=== PATIENT | female | born 1980 | race Caucasian/White ===

== ENCOUNTER 2019-07-12 23:18 | Inpatient (IN) ==
[2019-07-12 23:49] LABS: BASO# 0.06 X1000 (0.0-0.2); BASO% 1.2 % (0.0-0.8); EOS# 0.06 X1000 (0.0-0.7); EOS% 1.2 % (0.0-10.0); HEMATOCRIT 38.8 % (37.0-47.0); HEMOGLOBIN 13.6 g/dL (12.0-16.0); LYMPH# 1.18 X1000 (1.2-3.4); LYMPH% 23.1 % (20.5-51.1); MCH 30.8 PG (27-31); MCHC 35.1 g/dL (33-37); MCV 87.8 FL (81-99); MONO# 0.62 X1000 (0.11-0.59); MONO% 12.1 % (1.7-9.3); MPV 11.5 FL (7.4-10.4); NEUT# 3.19 X1000 (1.4-6.5); NEUT% 62.4 % (42.2-75.2); PLT 153 X1000 (130-400); RBC 4.42 XMIL (4.2-5.4); RDW 16.2 % (11.5-14.5); WBC 5.11 X1000 (4.8-10.8)
[2019-07-13 01:07] LABS: URINE SOURCE CLEAN CATCH
[2019-07-13 01:13] LABS: AGAP 12; ALB/GLOB RATIO 1.2; ALBUMIN 3.4 g/dL (3.5-5.0); ALKALINE PHOSPHATASE 345 U/L (32-104); AMYLASE 39 U/L (20-200); BUN 5 mg/dL (8-22); CALCIUM 8.6 mg/dL (8.8-10.2); CHLORIDE 101 mmol/L (98-107); COSMO 273; CREATININE 0.7 mg/dL (0.5-0.9); ESTIMATED GFR > 60; GLUCOSE 130 mg/dL (70-104); GOT 1074 U/L (10-30); GPT 1166 U/L (10-36); LIPASE 35 U/L (13-60); POTASSIUM 3.5 mmol/L (3.5-5.1); SODIUM 137 mmol/L (136-145); TCO2 24 mmol/L (25-35); TOTAL BILIRUBIN 14.91 mg/dL (0.20-1.00); TOTAL PROTEIN 6.2 g/dL (6.3-8.3)
[2019-07-13 01:22] LABS: UR AMPHETAMINES QUAL PRESUMPTIVE POSITIVE (NONE DETECT); UR BARBITUATES QUAL NONE DETECTED (NONE DETECT); UR BENZODIAZEPIN QUAL NONE DETECTED (NONE DETECT); UR CANNABINOIDS QUAL PRESUMPTIVE POSITIVE (NONE DETECT); UR COCAINE QUAL NONE DETECTED (NONE DETECT); UR METHADONE QUAL NONE DETECTED (NONE DETECT); UR OPIATES QUAL NONE DETECTED (NONE DETECT); UR OXYCODONE QUAL NONE DETECTED (NONE DETECT); UR PCP QUAL NONE DETECTED (NONE DETECT)
[2019-07-13 01:50] LABS: BLOOD URINE NEGATIVE (NEGATIVE); COLOR YELLOW; GLUCOSE URINE TRACE mg/dL (NEGATIVE); KETONE URINE NEGATIVE (NEGATIVE); LEUKOCYTES URINE TRACE (NEGATIVE); NITRITE URINE NEGATIVE (NEGATIVE); PROTEIN URINE 50 mg/dL (NEGATIVE); SP GRAVITY URINE 1.026; TURBIDITY URINE HAZY (CLEAR); UROBILINOGEN URINE 4 mg/dL (NORMAL)
[2019-07-13 02:12] LABS: UR EPITHELIAL CELLS <10 /HPF (<10); URINE BACTERIA NEGATIVE /HPF; URINE WBC <10 /HPF (<10)
[2019-07-13 02:29] LABS: BILIRUBIN URINE LARGE (NEGATIVE)
[2019-07-13 02:31] LABS: URINE CASTS NONE SEEN; URINE CRYSTALS NONE SEEN; URINE SMALL ROUND CELLS NONE SEEN; URINE YEAST PRESENT
--- NOTE | 2019-07-13 03:09 | PROVIDER DOCUMENTATION ---
This chart was entered by Thao Harris Scribe, acting as scribe for Tiffanie Angulo MD. HPI-Abdominal Pain/GI Problem - General Chief Complaint: Abdominal Pain Stated Complaint: ABD PAIN/FEVER/N/V/ Time Seen by Provider: 07/13/19 00:30 Source: patient Allergies/Adverse Reactions: Patient Allergies Allergy/AdvReac Type Severity Reaction Status Date / Time No Known Allergies Allergy Verified 07/13/19 02:13 Home Medications: Home Medication List Medication Instructions Recorded Confirmed Last Taken Type NK [No Home Medications] 07/13/19 07/13/19 Unknown History - History of Present Illness-ABD Nature of Presenting Problems: Pt is a 39 yr old female presenting with 2-3 days complaint of RUQ pain, nausea/vomiting and intermittent diarrhea/constipation, no fever/chills. Pt does admit to worsening yellowing of the skin/eyes. Last BM was yesterday, admits rashel-like stool. Abdominal Pain Onset Location: reports: RUQ Pain Radiation: reports: no radiation Quality of Pain: reports: aching Severity in ED: reports: moderate Onset/Duration: reports: 2 days ago, 3 days ago Timing: reports: still present Activities at Onset: reports: light activity Exposure to sick contacts?: No Modifying Factors: improves with: nothing Associated Symptoms: reports: constipation, diarrhea, nausea, vomiting. denies: fever/chills, genitourinary problems Last BM: 24 hours ago (rashel like bowel movement) Dark Stools Present?: reports: none noticed Rectal Bleeding: reports: none Rectal Pain: reports: none Bruising or Bleeding Gums?: No Similar Symptoms Previously?: No Recently seen or treated by another doctor?: No Review of Systems - Adult - REVIEW OF SYSTEMS - ADULT Constitutional: denies: chills, fever Eyes: reports: no symptoms reported Ears, Nose, Mouth & Throat: denies: ear pain, sinus problem, throat pain Cardiovascular: denies: chest pain, palpitations, syncope Respiratory: denies: cough, shortness of breath Gastrointestinal: reports: abdominal pain, constipation, diarrhea, nausea, vomiting Genitourinary: denies: dysuria, frequency, flank pain Musculoskeletal: denies: back pain, joint pain, neck pain Integumentary: reports: no symptoms reported Neurological: denies: dizziness/vertigo, headache/migraines Psychiatric: reports: no symptoms reported Endocrine: reports: change in skin pigment Hematologic/Lymphatic: reports: no symptoms reported Allergic/Immunologic: reports: no symptoms reported All Other Systems: Reviewed and Negative Past History - Adult - PAST MEDICAL HISTORY-ADULT Review of Records: reports: Old Records Reviewed, Nursing Assessment Review, Medications Reviewed, Social history reviewed & non-contributory. Major Childhood Illnesses: reports: denies history Cardiovascular: reports: denies history Respiratory: reports: denies history Gastrointestinal: reports: denies history Obstetrical/Gynecological: reports: denies history Genitourinary: reports: denies history Musculoskeletal: reports: denies history Neurological: reports: denies history Endocrine/Immune: reports: denies history Other Conditions: reports: denies history - IMMUNIZATION STATUS Childhood Immunizations: See Nurse Assessment Flu Vaccine: See Nurse Assessment - FAMILY HISTORY Family History: reviewed, not pertinent - SOCIAL HISTORY Smoking: cigarettes Provider spent 3-5 mins advising pt. on dangers of tobacco.: Discussed manners to quit use, and f/u contacts for add'l counseling. Substance Use: amphetamines (meth) Living Situation: family Physical Exam-General - PHYSICAL EXAM-ADULT Initial Vital Signs Reviewed: Yes - CONSTITUTIONAL General Appearance: alert, no apparent distress - EYES Eyes: PERRL/EOMI, scleral icterus - HEAD, EARS, NOSE, MOUTH & THROAT HENMT: normocephalic/atraumatic, moist mucous membranes, normal ENT inspection - NECK Neck: non-tender, full range of motion, supple, normal inspection - RESPIRATORY Respiratory: chest non-tender, lungs clear, normal breath sounds, no respiratory distress, no accessory muscle use - CARDIOVASCULAR Cardiovascular: normal peripheral pulses, no edema, tachycardia - GASTROINTESTINAL (ABDOMEN) Abdominal Exam: normal bowel sounds, soft, tenderness (RUQ). negative: hernia, mass, hepatomegaly - LYMPHATIC Lymphatic: no adenopathy - MUSCULOSKELETAL Back Exam: normal inspection, no CVA tenderness, no vertebral tenderness Extremity: normal range of motion, non-tender, normal gait, normal inspection - SKIN Integumentary: normal turgor, warm/dry, jaundice - NEUROLOGIC Neurologic: grossly normal, no motor/sensory deficits - PSYCHIATRIC Psych/Mental Status: normal mood/affect, normal thought content, normal thought process, oriented x 3 Progress - PLAN OF CARE/RESULTS Progress/Plan/Lab Results: Vital Signs - 8 hr 07/12/19 23:27 Temperature 98.3 F Pulse Rate 115 H Respiratory Rate 16 Blood Pressure 133/83 O2 Sat by Pulse Oximetry 98 Laboratory Results - last 24 hr 07/12/19 23:38 WBC 5.11 RBC 4.42 Hgb 13.6 Hct 38.8 MCV 87.8 MCH 30.8 MCHC 35.1 RDW Std Deviation 16.2 H Plt Count 153 MPV 11.5 H Immature Gran % (Auto) 0.0 Neut % (Auto) 62.4 Lymph % (Auto) 23.1 [place] % (Auto) 12.1 H Eos % (Auto) 1.2 Baso % (Auto) 1.2 H Immature Gran # (Auto) 0.00 Neut # (Auto) 3.19 Lymph # (Auto) 1.18 L [place] # (Auto) 0.62 H Eos # (Auto) 0.06 Baso # (Auto) 0.06 Orders Category Date Time Status ED: Urine Bedside ORDERED Care 07/12/19 23:34 Active NPO Diet 07/12/19 23:[address] ABDOMEN/PELVIS W/O CONTRAST [CT] Stat Exams 07/13/19 00:30 Ordered AMYLASE [CHEM] Stat Lab 07/12/19 23:38 Received CBC WITH DIFF [HEME] Stat Lab 07/12/19 23:38 Completed COMPREHENSIVE METABOLIC PANEL [CHEM] Stat Lab 07/12/19 23:38 Received LIPASE [CHEM] Stat Lab 07/12/19 23:38 Received URINALYSIS [URINALYSIS] Stat Lab 07/12/19 23:34 Uncollected Abd Pain/OB <20 weeks Stat Oth 07/12/19 23:33 Ordered Result Diagrams: 07/12/19 23:38 07/12/19 23:38 - REASSESSMENT Reassessment #1 Time Reassessed: 03:06 (Pt with acute LFT elevation; signs concerning for cholecystitis) - CT/MRI 1 CT Study: Abdomen (Real Rad interpretation - "cholelithiasis and findings consistent with acute cholecystitis. Possible ascending and transverse colitis. Gallbladder wall thickening with pericholecystic fluid and inflammation.") Impression: See EMR Report - CONSULTS/PCP/HOSPITALIST Notification #1 *Consult/PCP/Hospitalist*: Dr. Mckeon (Surgery) Time Discussed: 02:55 Consult Disposition: other (admit to hospitalist service) Time Discussed: 02:57 Reason/Comments: Dr. Haney Consult Disposition: Admit Departure - Departure Date of Disposition Decision: 07/13/19 Time of Disposition Decision: 03:03 DIAGNOSIS: Cholecystitis Disposition: ADMITTED INPATIENT 09 Certified Medical Emergency: Emergent Condition: Fair Referrals and Follow-Ups: None,PCP [Primary Care Provider] - - Critical Care Note This patient required my direct & personal management of CC.: No Attestation - Physician/ GRACE Attestation Patient care was provided by Advanced Practice Provider:: No The physician spent face to face time with patient:: Yes Advanced Practice Provider documentation review:: Supervising physician onsite and consulted in the evaluation and care of this patient. The physician did have a face to face encounter with the patient. This chart was documented by the indicated scribe, (Thao Harris, [employer]) and accurately reflects the services I performed and decisions made by me, Tiffanie Wooten MD, as attested by the provider's signature.
[2019-07-13] MEDS ORDERED: DILAUDID IV PRN ×2 (04:28→08:45)
[2019-07-13] MEDS ORDERED: ZOFRAN IV PRN (04:28)
[2019-07-13] MEDS: PROTONIX IV SCH (04:30)
[2019-07-13] MEDS: NS 1,000 ML IV SCH ×3 (04:30→17:59)
[2019-07-13] MEDS: SODIUM CHLORIDE 0.9% INJ SCH (05:01)
--- NOTE | 2019-07-13 06:49 | Diag Imaging Result Doc PS360 ---
CT ABDOMEN/PELVIS W/O CONTRAST - 07/13/2019 INDICATION: abd pain, jaundice COMPARISON: None FINDINGS: The lung bases are clear and the heart size is normal. There are several calcified stones in the gallbladder. There is some gallbladder wall thickening. No radiodense renal stones. No hydronephrosis or hydroureter. There is some questionable wall thickening of the transverse colon and descending colon which may reflect colitis. No bowel obstruction or free air. Normal appendix. Urinary bladder, uterus, and rectum are normal. Bones are intact and well mineralized. IMPRESSION: 1. Several gallstones in the gallbladder. Findings compatible with cholecystitis. 2. Probable colitis of the transverse and descending colon. This exam was performed using automated exposure control, adjustment of mA or kV according to patient size, and/or use of iterative reconstruction technique Electronically signed by Sandip Giraldo 07/13/2019 6:46 AM
[2019-07-13] MEDS ORDERED: ZOSYN 3.375 GM in NS 50 ML IV SCH (08:00)
--- NOTE | 2019-07-13 09:34 | HISTORY AND PHYSICAL ---
CHIEF COMPLAINT: Right upper quadrant abdominal pains. HISTORY OF PRESENT ILLNESS: Ms Hardy Pastrana is a 39-year-old female who does not have any significant past medical history, who presents to the hospital because of right upper quadrant abdominal pains which she has had for about 2 to 3 days. She has had associated nausea with vomiting. No diarrhea or constipation. The patient has had associated yellowness of the eyes. When she presented to the hospital, she was noted to have markedly elevated liver function tests, AST of 1074 and ALT of 1166. She also had a CT scan of the abdomen and pelvis which showed evidence of several gallstones in the gallbladder. Findings compatible with cholecystitis. Also probable colitis involving the transverse, as well as the descending colon. PAST MEDICAL HISTORY: Unremarkable. SOCIAL HISTORY: She smokes cigarettes. No alcohol use. She does use drugs. FAMILY HISTORY: Positive for gallbladder disease. ALLERGIES: No known drug allergies. PAST SURGICAL HISTORY: She has had tubal ligation in the past. MEDICATIONS: None. REVIEW OF SYSTEMS: Constitutional: No fever. Central Nervous System: She has headaches. ENT: No sinus problems. Eyes: She has yellowness of the eyes. Cardiovascular: No chest pain. Gastrointestinal: She does have nausea and vomiting. Genitourinary: No dysuria. Psychiatric: She has anxiety with depression. Dermatology: No skin lesions. Hematology: No bleeding problems. Endocrinology: No diabetes or thyroid disease. PHYSICAL EXAMINATION: VITAL SIGNS: Temperature is 98.3 degrees, pulse 115, respirations 16, blood pressure is 133/83, oxygen saturation 98%. HEENT: Atraumatic, normocephalic. She is icteric. No oral lesions noted. NECK: No lymphadenopathy or thyromegaly. CARDIOVASCULAR: S1, S2. RESPIRATORY: Has evidence of good entry bilaterally. ABDOMEN: Soft, nontender. No masses felt. EXTREMITIES: No evidence of edema. CENTRAL NERVOUS SYSTEM: No obvious focal deficits noted. LABORATORY DATA: WBC is 5.1, hematocrit is 38.2 with a platelet count of 153,000. Sodium is 137, potassium 3.5, chloride is 101, bicarbonate 24, BUN is 5, creatinine 0.7. AST 1074, ALT 1166, alkaline phosphatase 345. UA shows large amount of bilirubin. Urine drug screen positive for amphetamine, as well as cannabinoids. CT scan of the abdomen and pelvis shows evidence of several stones in the gallbladder. Also, probable colitis involving the transverse, as well as the descending colon. ASSESSMENT AND PLAN: 1. Acute cholecystitis with cholelithiasis. Place patient nothing by mouth, along with intravenous fluids, antiemetics and analgesic agents with antibiotics. Consult with Surgery for possible laparoscopic cholecystectomy. 2. Transaminitis, probably related to stones in the bile duct system. However, I will also get a hepatitis panel, as well as abdominal ultrasound. 3. Colitis involving the transverse as well as the descending colon. We will place the patient on antibiotics. The patient will need lower gastrointestinal endoscopy in the next 4 to 6 weeks. 4. Substance abuse. Aware. The patient needs to abstain from drug use. 5. Deep vein thrombosis prophylaxis. Sequential compression devices. 6. Gastrointestinal prophylaxis. Proton pump inhibitor. cc: Jeff Haney MD
[2019-07-13] MEDS: ROCEPHIN 1 GM in NS 50 ML IV SCH (09:58)
[2019-07-13 10:59] LABS: INR 1.09; PROTIME 14.3 Seconds (11.0-16.0)
[2019-07-13 11:00] LABS: PTT 40.5 Seconds (22.3-41.8)
[2019-07-13] MEDS: FLAGYL 500 MG/NS 500 MG/100 ML IVPB IV SCH ×3 (11:08→21:14)
[2019-07-13 11:38] LABS: HEMOGLOBIN A1C 5.3 % (4.8-6.0)
--- NOTE | 2019-07-13 11:46 | GENERAL SURGERY CONSULTATION ---
DATE: 07/13/2019 REQUESTING PHYSICIAN: Dr. Haney. REASON FOR CONSULTATION: Right upper quadrant pain and elevated liver function tests. HISTORY OF PRESENT ILLNESS: A 39-year-old female without really significant past medical history besides IV drug abuse and methamphetamine use, presented to the hospital with right upper quadrant pain which she has had for 2 to 3 days. She reports her last time to use methamphetamine was 2 to 3 days ago, and she has noticed that she has been jaundiced for 2 to 3 days. She was seen in emergency department, had a liver function tests that were over 1000 for AST and ALT. Bilirubin is over 14. A CT scan showed potential for cholecystitis and also probable colitis in the transverse and descending colon. I have been asked to weigh an opinion. Patient is reporting some right upper quadrant pain. She denies any recent IV drug abuse. PAST MEDICAL HISTORY: Nothing. PAST SURGICAL HISTORY: Tubal ligation. SOCIAL HISTORY: Smokes cigarettes. Does report methamphetamine use. FAMILY HISTORY: Positive for gallbladder disease. ALLERGIES: None reported. HOME MEDICATIONS: Reviewed. REVIEW OF SYSTEMS: A full 14 systems reviewed and are negative, except as specified in HPI. PHYSICAL EXAMINATION: Vital Signs: Patient is currently afebrile. Her vital signs are stable. General exam: No acute distress, jaundiced female, who looks stated age. HEENT: Normocephalic, atraumatic. Pupils equal, round, reactive to light. No scleral icterus noted. Mucous membranes moist. Oropharynx benign. Neck: Supple. Trachea midline. Cardiovascular: Regular rate and rhythm. Lungs: Grossly clear. Abdomen: Soft, nondistended. Some tenderness to palpation right upper quadrant, but no peritoneal signs. Extremities: Moves all extremities. Skin: Positive for jaundice. Vascular: All extremities perfused. Neurologic: Grossly intact. LABORATORY: White blood cell count is normal, hematocrit is normal, platelet count is normal. Bilirubin is 14.9, AST is 1074, ALT is 1166, alkaline phosphatase 345. Amylase, lipase normal. RADIOLOGY: CT scan independently reviewed and radiology report reviewed. Toxicology shows amphetamines positive and marijuana positive. CT scan independently reviewed and radiology report reviewed. ASSESSMENT AND PLAN: A 39-year-old female with right upper quadrant pain. 1. Right upper quadrant pain. At this time, her elevated bilirubin, AST, ALT, alkaline phosphatase seem more consistent with a hepatic injury pattern than cholestatic pattern. Bilirubin being 14 without biliary duct dilatation makes me think she might have some degree of hepatitis, which the panel is currently pending. I would recommend potentially getting Gastroenterology involved. We will need to get all the stuff back before even considering surgical intervention on the gallbladder, because again it could be just confounding variable at this moment. We will continue to follow. I appreciate the consult. cc: Juventino Gomez MD
--- NOTE | 2019-07-13 11:49 | PROGRESS NOTE ---
DATE: 07/13/2019 INTERVAL HISTORY: No acute events overnight. Ms. Pastrana was admitted for nausea, vomiting, abdominal pain, and jaundice. Workup is in progress. Surgery team has been consulted. SUBJECTIVE: Ms Pastrana is feeling better and abdominal pain has decreased. OBJECTIVE: Vital Signs: Temperature 98.5 degrees, pulse 72, respiratory rate 17, blood pressure 135/82, saturating 100% on room air. General: On physical exam, not in acute distress. She has generalized icterus and scleral icterus. Lungs: Air entry bilaterally equal. No wheeze, rhonchi, crackles. Cardiac: S1 and S2 normal. No murmur, rub, or gallop. Abdomen: Soft. Right upper quadrant tenderness with positive Hutson's sign. Active bowel sounds. Extremities: No lower extremity edema. She is alert and oriented x3. LABS: No new CBC or CMP. Urinalysis had large bilirubin. Urine toxicology positive for amphetamine and cannabis. Blood cultures are in lab. ASSESSMENT AND PLAN: 1. Acute cholecystitis with cholelithiasis. Continue intravenous fluids, intravenous nonsteroidal anti-inflammatory drugs, and intravenous hydromorphone as needed. I will keep her intravenous pantoprazole. Appreciate surgical team's recommendation. 2. Transaminitis with cholestatic pattern and elevated direct bilirubin. Follow up hepatitis panel, workup for autoimmune hepatitis, primary biliary cirrhosis and biliary cholangitis. CT scan of the abdomen and pelvis did not detect any definitive stone in the bile duct. Use of recreational substances is also a possibility. 3. Nonspecific colitis. 4. Amphetamine and cannabis use. The patient was counseled about stopping these substances including amphetamines and tobacco, as she has 4-cnha-fcc-day smoking history. 5. Continue enoxaparin for deep vein thrombosis prophylaxis. 6. Intravenous antibiotics. Further course pending further blood work including hepatitis panel. Plan of care discussed with the patient. Her questions have been answered. cc: Anival Delaney MD MTDD
[2019-07-13] MEDS: TORADOL IV PRN ×2 (12:01→18:19)
--- NOTE | 2019-07-13 14:34 | Diag Imaging Result Doc PS360 ---
EXAM: US ABDOMEN-COMPLETE 07/13/2019 HISTORY: abnormal lfts TECHNIQUE: Abdominal ultrasound COMMENT: The pancreas is normal in appearance. The aorta and inferior vena cava are within normal limits. The liver is unremarkable. There are numerous stones in the gallbladder and the gallbladder wall appears thickened although the gallbladder is not distended. There is no evidence of para cholecystic fluid or a sonographic Hutson sign. There is no evidence of biliary dilatation the common bile duct measuring less than 4 mm. The kidneys are without evidence of hydronephrosis or mass. The spleen is slightly enlarged measuring over 13.5 cm. There is antegrade flow in the portal vein. IMPRESSION: Cholelithiasis. Borderline splenomegaly. Electronically signed by Jared Rodriguez 07/13/2019 2:32 PM
[2019-07-14] MEDS: FLAGYL 500 MG/NS 500 MG/100 ML IVPB IV SCH ×4 (03:58→22:51)
[2019-07-14] MEDS: SODIUM CHLORIDE 0.9% INJ SCH (03:58)
[2019-07-14] MEDS: PROTONIX IV SCH (03:58)
[2019-07-14] MEDS: TORADOL IV PRN (04:11)
--- NOTE | 2019-07-14 06:24 | GENERAL SURGERY PROGRESS NOTE ---
DATE: 07/14/2019 SUBJECTIVE: Patient seems to be feeling a little bit okay. She is still jaundiced. OBJECTIVE: Vital Signs: Patient is currently afebrile. Her vital signs are stable. General: No acute distress. HEENT: Normocephalic, atraumatic. Pupils equal, round, and reactive to light. Positive scleral icterus noted. Mucous membranes moist. Oropharynx benign. Neck: Supple. Trachea midline. Cardiovascular: Regular rate and rhythm. Lungs: Grossly clear. Abdomen: Soft. Less tender in the right upper quadrant epigastric than yesterday. Extremities: Moves all extremities. Neurologic: Grossly intact. Skin: No signs of jaundice. Vascular: All extremities perfused. LABORATORY: None this morning as of yet. ASSESSMENT AND PLAN: A 39-year-old female with jaundice and right upper quadrant pain. Jaundice with right upper quadrant pain. At this time, I would still like to see the rest of her labs and hepatitis panel. Still looks like a liver injury pattern more so than a cholestatic pattern, but we will continue to monitor. cc: Juventino Gomez MD
[2019-07-14 08:30] LABS: AGAP 11; ALB/GLOB RATIO 1.2; ALBUMIN 2.9 g/dL (3.5-5.0); ALKALINE PHOSPHATASE 290 U/L (32-104); BUN 4 mg/dL (8-22); CALCIUM 8.2 mg/dL (8.8-10.2); CHLORIDE 104 mmol/L (98-107); COSMO 272; CREATININE 0.6 mg/dL (0.5-0.9); ESTIMATED GFR > 60; GLUCOSE 91 mg/dL (70-104); GOT 862 U/L (10-30); GPT 893 U/L (10-36); POTASSIUM 3.2 mmol/L (3.5-5.1); SODIUM 138 mmol/L (136-145); TCO2 23 mmol/L (25-35); TOTAL BILIRUBIN 13.51 mg/dL (0.20-1.00); TOTAL PROTEIN 5.3 g/dL (6.3-8.3)
[2019-07-14] MEDS: ROCEPHIN 1 GM in NS 50 ML IV SCH (09:36)
[2019-07-14] MEDS: NS 1,000 ML IV SCH ×2 (10:29→14:55)
[2019-07-14] MEDS: KLOR-CON PO SCH ×2 (14:21→18:36)
--- NOTE | 2019-07-14 16:33 | PROGRESS NOTE ---
DATE: 07/14/2019 INTERVAL HISTORY: No acute events overnight. Ms. Pastrana denies any chest pain, shortness of breath. She is still nauseous. Denies any more vomiting. Her abdominal pain is better. I was initially informed that the patient and her family and her significant other at bedside wanted the patient to go out of the hospital and probably be admitted to somewhere in [place] closer to her mother. I discussed with Ms. Pastrana about differential diagnosis of abnormal liver function tests, possible course of natural history. I also discussed with her that it may take several days for her liver function tests to become normal. I discussed about cholecystitis, hepatitis panel pending, recreational substance use, which could potentially contribute to it. She understood it. VITAL SIGNS: Temperature 98.3 degrees, pulse 85, respiratory rate 18, blood pressure 145/95, saturating 100% on room air. PHYSICAL EXAMINATION: HEENT: Ms. Pastrana does have icterus both of the skin and sclerae. Oral cavity is moist. Lungs: Air entry bilaterally equal. No wheeze or crackles. Heart: S1, S2, normal. No murmur or gallop. Abdomen: Soft. Mild tenderness in right upper quadrant, which is significantly decreased from presentation. Otherwise abdomen is nontender. Active bowel sounds. Extremities: No lower extremity edema. Neurologic: She is alert and oriented x3. LABS: Suggestive of a potassium of 3.2 which is currently being repleted. She does have decreased in total bilirubin. AST and ALT are improving. Her INR was normal. Albumin is 2.9. MICROBIOLOGY: Blood cultures are in lab. IMAGING: Abdominal ultrasound had suggested cholelithiasis and borderline splenomegaly. ASSESSMENT AND PLAN: 1. Acute cholecystitis with cholelithiasis. Continue intravenous fluids, intravenous NSAID, intravenous hydromorphone as needed. Continue intravenous ceftriaxone and metronidazole. Blood culture data has been unremarkable so far. Continue intravenous pantoprazole as well. Surgical team on board. 2. Acute hepatitis with hyperbilirubinemia and transaminitis. Antinuclear antibody and antimitochondrial antibody have been negative. Follow up hepatitis panel and antismooth muscle antibodies. Differential could also include use of recreational substances. I counseled about cessation of these substances. She understood it. 3. Amphetamine and cannabis use. She was counseled about not using these substances again. 4. Active tobacco use. She has 1 pack per day smoking history. I counseled her about smoking cessation. 5. Others. Continue enoxaparin for DVT prophylaxis. DISPOSITION: I will monitor patient inside the hospital. As per her request, I am in the process of calling [facility] in [facility]. cc: Anival Delaney MD MTDChelsea
--- NOTE | 2019-07-14 20:04 | PROGRESS NOTE ---
DATE: 07/14/2019 ADDENDUM TO PREVIOUSLY DICTATED PROGRESS: As per patient's request, I reached out to [facility] in [facility], to request transfer of this patient, and Dr. Barraza has accepted the patient. I explained to her about the patient's acute hepatitis, pending hepatitis panel. I explained to her about acute cholecystitis and the need for surgery evaluation, and a detailed sign-out was provided to the patient. I was later informed that though Dr. Barraza had accepted the patient, they did not have any telemetry beds, so they are going to reach out to us when the telemetry bed will become available. Her acetaminophen level was undetectable. cc: Anival Delaney MD
[2019-07-15] MEDS: NS 1,000 ML IV SCH (02:36)
[2019-07-15] MEDS: FLAGYL 500 MG/NS 500 MG/100 ML IVPB IV SCH ×2 (03:52→08:58)
[2019-07-15] MEDS: SODIUM CHLORIDE 0.9% INJ SCH (03:52)
[2019-07-15] MEDS: PROTONIX IV SCH (03:52)
[2019-07-15 07:12] LABS: AGAP 10; ALB/GLOB RATIO 1.3; ALBUMIN 3.1 g/dL (3.5-5.0); ALKALINE PHOSPHATASE 295 U/L (32-104); BUN 3 mg/dL (8-22); CALCIUM 8.1 mg/dL (8.8-10.2); CHLORIDE 102 mmol/L (98-107); COSMO 272; CREATININE 0.7 mg/dL (0.5-0.9); ESTIMATED GFR > 60; GLUCOSE 90 mg/dL (70-104); GOT 651 U/L (10-30); POTASSIUM 3.9 mmol/L (3.5-5.1); SODIUM 138 mmol/L (136-145); TCO2 26 mmol/L (25-35); TOTAL PROTEIN 5.5 g/dL (6.3-8.3)
[2019-07-15 07:18] LABS: GPT 793 U/L (10-36); TOTAL BILIRUBIN 16.34 mg/dL (0.20-1.00)
[2019-07-15 08:05] VITALS: BP 116/80
[2019-07-15] MEDS: ROCEPHIN 1 GM in NS 50 ML IV SCH (08:58)
--- NOTE | 2019-07-15 10:12 | DISCHARGE SUMMARY ---
ADMISSION DATE: 07/13/2019 DISCHARGE DATE: 07/15/2019 HOSPITAL COURSE: Ms. Pastrana is a 39-year-old. She has no primary care physician. She came in with right upper quadrant abdominal pain. This 39-year-old did not have any significant past medical history presented to the hospital because of right upper quadrant abdominal pain, which she has had for 2 or 3 days. She also has associated nausea and vomiting, no diarrhea or constipation. The patient has had associated yellowish in eyes and when she presented to the hospital was noted to have markedly elevated liver function tests, AST was 1074, ALT was 1166. Also had a CT scan of abdomen and pelvis, which showed evidence of several gallstones in the gallbladder, findings compatible with possible cholecystitis. She was admitted. Surgery followed, were not convinced that this was cholecystitis. She had right upper quadrant pain, elevated bilirubin, elevated AST, ALT, and alkaline phosphatase seemed more consistent with hepatic injury and bilirubin was 14 without any biliary dilatation, so GI followed. Hepatitis profile was obtained and she seemed to feel better clinically. She had transaminitis with a cholestatic pattern, elevated direct bilirubin, and nonspecific colitis. She wanted to go to [facility] to where her mother is. She was accepted by Dr. Barraza. She is a private pay so her mother is going to drive her there but she wants to go to [facility] in [place]. Her lab has been reviewed. Note that the drug screen on presentation was positive for amphetamines and cannabinoids. Acetaminophen level was less than 1.2. I am going to let her go home. She wants to drive herself to [facility] where she has been accepted and they have a room but she does not want to go by ambulance, she cannot afford that but is insistent on going by private vehicle. I am going to discharge her and she will go to [facility]. She at the present time was getting ceftriaxone 1 g IV q.24 hours and Flagyl 500 mg IV q.6 hours, and that was really the only IV medications she is getting, so we will stop that and they can resume that at [facility]. Antimitochondrial antibody was less than 0.1, which is negative. An GALLITO screen was negative. Her transaminases have come down a little bit. Her bilirubin actually is at 16 and her GGT was 651, AST 793, ALT 295. So, we will discharge her to go to [facility]. cc: Earle Mcguire MD
--- NOTE | 2019-07-15 12:48 | GENERAL SURGERY PROGRESS NOTE ---
DATE: 07/15/2019 Reviewed notes. The patient does want to try to get closer to family to be transferred to [facility]. At this point, her labs are improving although somewhat slowly. The etiology is still unclear. I do not think she needs immediate cholecystectomy, but I am okay with her being transferred to [facility] and let them further evaluate it. If no other etiology is noted, she probably would be a candidate for laparoscopic cholecystectomy, but at this time I would recommend waiting to get all data. cc: Juventino Gomez MD
[2019-07-15 16:07] LABS: HEPATITIS PROFILE ACUTE SEE COMMENTS
--- NOTE | 2019-07-15 19:59 | DISCHARGE SUMMARY ---
ADMISSION DATE: 07/13/2019 DISCHARGE DATE: 07/15/2019 DISCHARGE DISPOSITION: Patient is being transferred to [facility] in the [facility] in [place]. DISCHARGE CONDITION: Hemodynamically stable. VITALS: Her recent vitals are temperature 98.4 degrees, pulse 100, respiratory 18, blood pressure 141/89, saturating 100% on room air. These are taken at 8 p.m. on 07/14/2019 at 2000. DISCHARGE DIAGNOSIS: 1. Acute calculous cholecystitis. 2. Acute hepatitis with pending workup. 3. Amphetamine and cannabis abuse. 4. Active tobacco abuse. OTHER DIAGNOSIS: None. CURRENT MEDICATIONS: 1. The patient is on intravenous metronidazole 500 mg IV q.6 hours. 2. Intravenous hydromorphone 0.5 mg every 6 hours as needed. 3. Sodium chloride intravenous 75 mL/h. 4. Ondansetron 4 mg IV q.4 hours as needed for nausea and vomiting. 5. Pantoprazole 40 mg IV every 24 hours. 6. Ceftriaxone 1 g intravenous every 24 hours. PHYSICAL EXAMINATION: In the morning time during encounter, the patient had marked jaundice affecting skin and sclerae. There was no pallor. Oral cavity is moist. Respiratory: Air entry bilaterally equal with no wheeze or crackle. Cardiovascular: S1 and S2 normal with no murmur, gallop or rub. Abdomen: Soft. Mild tenderness in right upper quadrant with positive Hutson's sign. However, it had improved since presentation. Active bowel sounds. The patient was tolerating liquid diet. Extremity: No lower extremity edema. Neurological: She was alert and oriented x3. SIGNIFICANT LABS: 1. At the time of discharge WBC 5000, hemoglobin 13.6, platelet 153,000. Potassium 3.2 which was repleted. BUN 4, creatinine 0.6. 2. Total bilirubin is 13.51, AST 860, ALT 890. Her liver function tests improved from presentation when her AST and ALT were close to 1100 and total bilirubin was close to 15. 3. Urine toxicology: Acetaminophen level less than 1.2, amphetamine screen was. Positive cannabis in the urine was positive. Antinuclear antibody and antimitochondrial antibody were negative. 4. Pending blood tests. Hepatitis profile is pending. Anti smooth muscle antibody is pending. Microbiology: Blood cultures so far have not shown any growth. 5. Significant imaging during hospital admission: Abdomen and pelvis CT on July 13 had several gallstones in the gallbladder compatible with cholecystitis, probable colitis of the transverse and descending colon. 6. Abdominal ultrasound on July 13 had cholelithiasis and borderline splenomegaly. CONSULTATION DURING HOSPITAL ADMISSION: General surgeon Dr. Gomez. HOSPITAL COURSE SUMMARY: Ms. Pastrana is a 39-year-old lady without any significant past medical history, who presented with right upper quadrant abdominal pain associated with nausea, vomiting of about 3 days duration. She had also started noticing yellowness of the eyes and sclerae. When she presented to the emergency room, she was found to have temperature of 98.3 degrees, pulse of 115, respiratory rate of 16 and blood pressure of 133/83. She was saturating 100% on room air. She was diagnosed with acute cholecystitis based on CT scan and the hospitalist team was consulted for further management. The patient was treated with intravenous fluids, intravenous antibiotics for acute calculous cholecystitis and surgical team was consulted. Considering her profound hepatitis, urgent surgery was held and her liver function test were followed. The 24 hours later after intravenous fluids and intravenous antibiotics for cholecystitis, her liver function test did show improvement. So far antinuclear antibody and antimitochondrial antibody have been negative. Acetaminophen level was undetectable. Hepatitis panel and anti smooth muscle antibody were in lab. It was thought the patient's acute liver injury could be in the setting of viral hepatitis versus other etiologies. She was also noticed to be using amphetamine, which could have also contributed to liver function test abnormality. The patient's mother lived close to [facility], and the patient had requested to be transferred to [facility]. She was explained that the [facility] did have all the facilities to take care of her medical illnesses, however, she had still requested, so a call was made to [facility] and the patient was accepted by Dr. Barraza. Thirty minutes were spent in preparing this discharge paperwork. cc: Anival Delaney MD
== END 2019-07-15 10:05 | disposition home or self-care (01) | DRG 445 ==
LOC: ED 23:18 → SUATTDRO 07-13 05:08 → EDIPHOLD 07-13 05:08 → 4N 07-13 13:47
PROVIDERS: ATTEND Emergency Medicine